=== PATIENT | female | born 1960 | race Caucasian/White ===

== ENCOUNTER 2016-12-14 18:15 | Emergency (ER) | payer OTHER ==
[~2016-12-14] VITALS: Wt 68.0 kg
[~2016-12-14 18:15] MED LIST: 'PARAFON FORTE500 M1 PO; ALBUTEROL0.09 MG/A2 IH; AMOXICILLIN500 MG PO; ANAPROX DS550 MG PO; ATIVAN1 MG PO; AUGMENTIN 875875 MG PO; CARAFATE1 G1 PO; CARE OT; CATAFLAM50 MG PO; CIPRO250 MG PO; CIPROFLOXACIN500 MG PO; CLARITIN10 MG PO; COLACE100 MG PO; DELTASONE10 MG PO; DIOVAN80 M1 PO; FLEXERIL10 MG PO; FLEXERIL5 MG PO; GABAPENTIN100 M2 PO; HCTZ/TRIAMTEREN1 TA3 PO; HYDROCODONE BIT1 T11 PO; IBU-8800 MG PO; MACROBID100 M1 PO; MELOXICAM15 MG PO; MELOXICAM7.5 MG PO; MOTRIN800 MG PO; NAPROSYN500 MG PO; NKHM; Nystatin Cream15 GM T; OYSTER CALCIUM1 TA2 PO; OYSTER SHELL 51 EACH PO; PREDNICOT20 MG PO; PREDNISONE20 MG PO; PROTONIX20 MG PO; PROTONIX40 MG PO; PROVENTIL0.09 MG/AC IH; ROBAXIN-750750 MG PO; ROBAXIN500 MG PO; ROBAXIN750 MG PO; ROBITUSSIN DM 105 ML PO; TESSALON PERLE200 MG PO; TORADOL10 MG PO; TRAMADOL HCL50 MG PO; TRIMOX500 MG PO; TYLENOL325 M1 PO; TYLENOL500 MG PO; ULTRAM50 MG PO; VALSARTAN-HCTZ1 EAC2 PO; VICODIN 5/500 505 MG PO; VICODIN 500 MG-1 TAB PO; VITAMIN D400 IU PO; Zofran4 MG PO; [UNRECOGNIZED DRUG - OTHER]
== END 2016-12-14 19:55 | disposition home or self-care (01) ==
LOC: ED 18:15
DX: S60.041A Contusion of right ring finger without damage to nail, initial encounter (principal); F41.9 Anxiety disorder, unspecified; Z88.1 Allergy status to other antibiotic agents; W23.0XXA Caught, crushed, jammed, or pinched between moving objects, initial encounter; Y93.89 Activity, other specified; Y92.9 Unspecified place or not applicable; Y99.9 Unspecified external cause status

== ENCOUNTER 2017-08-07 14:57 | Emergency (ER) | payer OTHER ==
[~2017-08-07] VITALS: Ht 147.3 cm; Wt 63.5 kg
[2017-08-07 15:51] LABS: BASO # 0.1 10*3/uL (0.0-0.1); BASO % 0.7 % (0.0-1.0); EOS # 0.4 10*3/uL (0.0-0.4); EOS % 3.7 % (1.0-4.0); HEMATOCRIT 41.2 % (37.0-47.0); HEMOGLOBIN 13.5 g/dl (12.0-16.0); LYMPH # 2.7 10*3/uL (1.3-4.4); LYMPH % 29.3 % (27.0-41.0); MEAN CELL VOLUME 83.7 fl (81.0-99.0); MEAN CORPUSCULAR HGB 27.4 pg (27.0-31.0); MEAN CORPUSCULAR HGB CONC 32.8 g/dl (33.0-37.0); MONO # 0.7 10*3/uL (0.1-1.0); MONO % 7.9 % (3.0-9.0); NEUT # 5.4 10*3/uL (2.3-7.9); NEUT % 57.8 % (47.0-73.0); PLATELET COUNT AUTOMATED 408 10*3/uL (130-400); RED BLOOD COUNT 4.92 10*6/uL (4.10-5.10); RED CELL DISTRI WIDTH 13.7 % (0-14.5); WHITE BLOOD COUNT 9.4 10*3/uL (4.8-10.8)
[2017-08-07 16:05] LABS: ALBUMIN 3.5 gm/dl (3.1-4.5); ALKALINE PHOSPHATASE 122 U/L (45-117); BUN 20 mg/dl (7-24); CHLORIDE 105 mmol/L (98-107); CREATININE 1.09 mg/dL (0.55-1.02); LIPASE 148 U/L (73-393); POTASSIUM 4.2 mmol/L (3.5-5.1); SGOT/AST 19 IU/L (3-35); SGPT/ALT 29 U/L (12-78); SODIUM 142 mmol/L (136-145); TOTAL PROTEIN 7.8 gm/dL (6.4-8.2)
[2017-08-07] MEDS ORDERED: ZOFRAN ODT4 MG SL (18:50)
[2017-08-07] MEDS ORDERED: NORCO 10-325 T1 EACH PO (18:50)
== END 2017-08-07 19:04 | disposition home or self-care (01) ==
LOC: ED 14:57
PROVIDERS: Emergency Medicine
DX: K80.20 Calculus of gallbladder without cholecystitis without obstruction (principal); Z79.899 Other long term (current) drug therapy; Z88.8 Allergy status to other drugs, medicaments and biological substances

== ENCOUNTER → 2017-08-16 | Day surgery (SDC) | payer OTHER ==
[~2017-08-16] VITALS: Ht 147.3 cm; Wt 45.4 kg
[2017-08-16] VITALS (18 sets, daily range): BP systolic 112–168; BP diastolic 46–81
[~2017-08-16] MED LIST changes: +NORCO 10-325 T1 EACH PO; +NORCO 5-325 TA1 EACH PO; +ZOFRAN ODT4 MG SL
--- NOTE | ~2017-08-16 | O ---
[place], [place] OPERATIVE NOTE NAME: SHO LABOY [facility] #: [id number] UNIT #: [id number] ROOM: DOCTOR: JUANCARLOS KELLER MD BIRTHDATE: [birth year] DOS: 08/16/2017 PREOPERATIVE DIAGNOSIS: Symptomatic gallstones. POSTOPERATIVE DIAGNOSIS: Symptomatic gallstones. PROCEDURE: Laparoscopic cholecystectomy. SURGEON: Juancarlos Keller MD DINNER COOK: NAYELY. ANESTHESIA: General with endotracheal intubation. INDICATIONS: This is a 57-year-old lady who has a history of symptomatic gallstones, who is here for the above-mentioned procedure. The procedure and its complications were explained to the patient in detail preoperatively. Complications that were discussed included but were not limited to bleeding, infection, hematoma/seroma/abscess formation, biloma formation, inadvertent injury to common bile duct, damage to underlying vital structures and incisional hernia formation. She agreed to proceed. DESCRIPTION OF PROCEDURE: After identifying the patient, the patient was brought to the operating suite and laid in the supine position. After induction of general anesthesia, the parts were then painted and draped in the usual sterile fashion. A time-out procedure was called. An incision was made in a transverse fashion below the umbilicus. The skin and the subcutaneous tissue were incised in the line of the incision. The fascia was incised vertically and 2 stay sutures were taken with the help of 0 Vicryl. The peritoneum was opened and a 12 mm Thien port was introduced into the peritoneal cavity. A pneumoperitoneum was created. Under direct vision, an epigastric incision of 10 mm and two 5 mm incisions were made in the right upper quadrant and appropriate size ports were introduced. The gallbladder was retracted superiorly and laterally. The cystic duct and the cystic artery were meticulously dissected until the critical view of safety was obtained and the triangle of Calot was identified. Thereafter, each of these structures were clipped 3 times and cut between the first and the second clip. The gallbladder was then removed from the bed of the gallbladder and placed in an EndoCatch bag. It was sent for histopathological diagnosis after it was removed. Thereafter, hemostasis was achieved in the liver bed and the ports were then removed and the fascial defect was approximated with the help of 0 Vicryl in interrupted fashion. The skin edges were approximated with 4-0 Vicryl after local anesthesia was infiltrated. The patient tolerated the procedure well. She was extubated uneventfully and brought back to the recovery room in stable fashion. There were no complications. Dr. Juancarlos Keller, the attending surgeon, was present throughout the operating case. [place], [place] OPERATIVE NOTE NAME: SHO LABOY UNIT #: [id number] ROOM: DOCTOR: JUANCARLOS KELLER MD BIRTHDATE: [birth year] Juancarlos Keller MD CM:OPRECORD:OPERATIVE NOTE [id number] JUANCARLOS KELLER MD 08/16/17 1043 interface
== END | disposition home or self-care (01) ==
LOC: SDC 08-15 10:15
DX: K81.1 Chronic cholecystitis (principal); Z88.8 Allergy status to other drugs, medicaments and biological substances; I10 Essential (primary) hypertension; Z98.51 Tubal ligation status; Z90.710 Acquired absence of both cervix and uterus; Z98.890 Other specified postprocedural states; Z79.899 Other long term (current) drug therapy; E66.01 Morbid (severe) obesity due to excess calories

== ENCOUNTER 2018-01-01 15:08 | Emergency (ER) | payer OTHER ==
[~2018-01-01] VITALS: Ht 147.3 cm; Wt 65.8 kg
[2018-01-01] MEDS ORDERED: ZOCOR5 MG PO (15:13)
[2018-01-01] MEDS ORDERED: ANAPROX DS550 MG PO (16:52)
== END 2018-01-01 16:50 | disposition home or self-care (01) ==
LOC: ED 15:08
DX: M17.12 Unilateral primary osteoarthritis, left knee (principal); Z88.1 Allergy status to other antibiotic agents; Z79.899 Other long term (current) drug therapy

== ENCOUNTER 2018-01-21 11:18 | Emergency (ER) | payer OTHER ==
[~2018-01-21] VITALS: Ht 147.3 cm; Wt 68.0 kg
[~2018-01-21 11:18] MED LIST changes: +ZOCOR5 MG PO
[2018-01-21] MEDS ORDERED: NAPROSYN500 MG PO (12:15)
[2018-01-21] MEDS ORDERED: AMOXICILLIN500 M2 PO (12:15)
[2018-01-21] MEDS ORDERED: FLONASE ALLERG9.9 ML NAS (12:15)
== END 2018-01-21 12:20 | disposition home or self-care (01) ==
LOC: ED 11:18
DX: S86.911A Strain of unspecified muscle(s) and tendon(s) at lower leg level, right leg, initial encounter (principal); J01.10 Acute frontal sinusitis, unspecified; H92.03 Otalgia, bilateral; J02.9 Acute pharyngitis, unspecified; Z88.1 Allergy status to other antibiotic agents; Z79.899 Other long term (current) drug therapy; X58.XXXA Exposure to other specified factors, initial encounter; Y93.89 Activity, other specified; Y92.89 Other specified places as the place of occurrence of the external cause; Y99.8 Other external cause status

== ENCOUNTER → 2018-03-12 | Outpatient (CLI) | payer OTHER ==
[~2018-03-12] MED LIST changes: +AMOXICILLIN500 M2 PO; +FLONASE ALLERG9.9 ML NAS
== END ==
LOC: ORTHO 03:32
DX: M76.892 Other specified enthesopathies of left lower limb, excluding foot (principal); M79.89 Other specified soft tissue disorders

== ENCOUNTER → 2018-03-21 | Outpatient (CLI) | payer MEDICARE, MEDICAID | END | disposition home or self-care (01) | LOC: MRI 10:31 | DX: M17.12 Unilateral primary osteoarthritis, left knee (principal) ==

== ENCOUNTER → 2018-05-15 | Day surgery (SDC) | payer MEDICARE, MEDICAID ==
[~2018-05-15] MED LIST changes: +CORTISPORIN SUS10 ML OT; +IBUPROFEN600 MG PO; +LOSARTAN-HCTZ1 EAC2 PO; +ROBAXIN500 M1 PO
--- NOTE | ~2018-05-15 | O ---
[place], [place] OPERATIVE NOTE NAME: SHO LABOY UNIT #: [id number] ROOM: DOCTOR: LENI RIVERACHERELLE BIRTHDATE: [birth year] DOS: 05/15/2018 GASTROENDOSCOPIC REPORT HISTORY OF PRESENT ILLNESS: This is a 58-year-old patient who presented with chief complaint of dysphagia to solid food and difficulty swallowing her pills. On Protonix and Carafate, which is helping. However, she is still complaining of abdominal pain, sonographic study has been ordered. PAST MEDICAL HISTORY: Associated with hypertension, hyperlipidemia, degenerative joint disease, and gastritis. PAST SURGICAL HISTORY: Cholecystectomy, hysterectomy, podiatric surgery, and . FAMILY HISTORY: Noncontributory. PROCEDURE: Today's procedure part of investigation is panendoscopy plus balloon dilation of esophagus plus biopsy. PREMEDICATION: Propofol. SCOPE: Olympus forward-viewing gastroscope Q10 video. REPORT: After putting the patient in left lateral position and application of lubricant to the scope, the scope was introduced. Thereafter, under direct visualization, advanced through the length of esophagus without difficulty. Hiatal hernia about a 2 cm was noticed. Gastric pouch was entered. Gastritis seen. Duodenal bulb, second and third part within normal limits. Scope was gradually withdrawn along the lesser curvature. Air was suctioned out. Antral biopsy obtained. The patient extubated to the proximal stomach. At this stage, a balloon size 20 was introduced into the gastric pouch, inflated and swept along the length of the esophagus. Highest resistance at the upper esophagus was noticed to a point where we had to reduce the pressure to size 19. Then, only the balloon was retrievable. The patient tolerated the procedure well. IMPRESSION: Upper esophageal stricture, status post balloon dilation to size 19, small hiatal hernia, and gastritis. PLAN AND DISCUSSION: Continuation with the same therapy with Protonix and Carafate. Elevation of the head of the bed 6 inch all time, Gaviscon as antacid of choice, abstaining from solid food ingestion 5 hours prior to retiring. Followup routinely with you in office, p.r.n. visit with us in GI Clinic. I thank you very much indeed for your kind referral. [place], [place] OPERATIVE NOTE NAME: SOH LABOY UNIT #: [id number] ROOM: DOCTOR: LENI RIVERA,CHERELLE BIRTHDATE: [birth year] CHERELLE FARRAR MD CM:OPRECORD:OPERATIVE NOTE [id number] CHERELLE FARRAR MD 05/15/18 1307 interface
[2018-05-15 10:52] VITALS: BP 131/63
[2018-05-15 12:14] VITALS: BP 97/49
[2018-05-15 12:29] VITALS: BP 119/73
[2018-05-15 12:44] VITALS: BP 124/54
== END | disposition home or self-care (01) ==
LOC: SDC 05-13 12:30
DX: K22.2 Esophageal obstruction (principal); K29.50 Unspecified chronic gastritis without bleeding; K44.9 Diaphragmatic hernia without obstruction or gangrene; I10 Essential (primary) hypertension; K21.9 Gastro-esophageal reflux disease without esophagitis; E78.5 Hyperlipidemia, unspecified; M19.90 Unspecified osteoarthritis, unspecified site; G89.29 Other chronic pain; Z90.49 Acquired absence of other specified parts of digestive tract; Z90.710 Acquired absence of both cervix and uterus; Z98.890 Other specified postprocedural states; Z98.891 History of uterine scar from previous surgery; Z88.1 Allergy status to other antibiotic agents; Z79.899 Other long term (current) drug therapy; Z98.51 Tubal ligation status

== ENCOUNTER → 2018-06-04 | Outpatient (CLI) | payer OTHER ==
[2018-06-04 09:00] LABS: HEMATOCRIT 41.3 % (37.0-47.0); HEMOGLOBIN 13.4 g/dl (12.0-16.0); MEAN CELL VOLUME 84.5 fl (81.0-99.0); MEAN CORPUSCULAR HGB 27.4 pg (27.0-31.0); MEAN CORPUSCULAR HGB CONC 32.4 g/dl (33.0-37.0); RED BLOOD COUNT 4.89 10*6/uL (4.10-5.10); WHITE BLOOD COUNT 8.3 10*3/uL (4.8-10.8)
[2018-06-04 09:22] LABS: ALBUMIN 3.4 gm/dl (3.1-4.5); ALKALINE PHOSPHATASE 121 U/L (45-117); BUN 14 mg/dl (7-24); CHLORIDE 104 mmol/L (98-107); CHOLESTEROL 179 mg/dL (<200); CPK 92 U/L (26-192); CREATININE 1.07 mg/dL (0.55-1.02); HDL CHOLESTEROL 43 mg/dl (40-60); LDL CHOLESTEROL 105 mg/dL (9-159); POTASSIUM 3.7 mmol/L (3.5-5.1); SGOT/AST 21 IU/L (3-35); SGPT/ALT 26 U/L (12-78); SODIUM 141 mmol/L (136-145); TOTAL PROTEIN 7.7 gm/dL (6.4-8.2); TRIGLYCERIDES 157 mg/dl (<150); VLDL CHOLESTEROL 31 mg/dL (6-40)
== END | disposition home or self-care (01) ==
LOC: LAB 08:00
PROVIDERS: Family Medicine
DX: E78.00 Pure hypercholesterolemia, unspecified (principal); E74.9 Disorder of carbohydrate metabolism, unspecified; K21.9 Gastro-esophageal reflux disease without esophagitis; R05 Cough; E55.9 Vitamin D deficiency, unspecified

== ENCOUNTER → 2018-09-04 | Day surgery (SDC) | payer OTHER ==
[~2018-09-04] VITALS: Ht 147.3 cm; Wt 68.0 kg
[~2018-09-04] MED LIST changes: +ZITHROMAX250 MG PO
--- NOTE | ~2018-09-04 | O ---
[place], [place] OPERATIVE NOTE [id number] #: [id number] ROOM: [facility] B[facility] [birth year] DOS: 09/04/2018 HISTORY OF PRESENT ILLNESS: A 58-year-old patient who presented with chief complaint of dysphagia, undergoing investigation. ALLERGIES: ERYTHROMYCIN, QUESTIONABLY. FAMILY HISTORY: Noncontributory. PAST SURGICAL HISTORY: , hysterectomy, and cholecystectomy. PAST MEDICAL HISTORY: Obesity, hypertension, gastritis, and sciatica. SOCIAL HISTORY: Nonsmoker, nonalcohol consumer. PROCEDURE: Today's procedure part of investigation is panendoscopy and colonoscopy. PREMEDICATION: Propofol. SCOPE: Olympus forward-viewing gastroscope Q10 video. REPORT: After putting the patient in left lateral position and application of lubricant to the scope, the scope was introduced. Thereafter, under direct visualization, advanced through the length of esophagus without difficulty. Esophagus, cervix, thoracic are all within normal limits. Small hiatal hernia was noticed approximately 2.5 cm. Gastric pouch was entered. Mild gastritis seen. Duodenal bulb, second and third part within normal limits. Antral biopsy obtained. The patient's GI reflexion of the scope reveals cardia within normal limit. The air was suctioned. At this stage, a balloon size 15-18 was introduced in mid gastric pouch inflated to size 18 ____ along the distal esophagus to cervical esophagus. Highest resistance is in cervical esophagus and we had to compromise to size 17 and upper esophagus dilated. Air was suctioned out. The patient was extubated, tolerated the procedure well. IMPRESSION: Benign upper esophageal stricture, status post balloon dilation to size 17, hiatal hernia, small gastritis, mild. PLAN AND DISCUSSION: The patient is on ibuprofen 600 mg 3 times a day; that is the culprit for dyspepsia and on the other hand, she has been on pantoprazole 40 mg 1 every day. She is on meloxicam 7.5 mg another culprit in her dyspepsia and gastritis. Antireflux measures with elevation of the head of bed at 10 inches all time, avoiding late solid food. Gaviscon antacid of choice for breakthrough dyspepsia and we will clinically reassess in the office to see if the dilation has helped her or otherwise. I thank you very much indeed for your kind referral. [place], [place] OPERATIVE NOTE NAME: SHO LABOY UNIT #: [id number] ROOM: DOCTOR: LENI RIVERA,CHERELLE BIRTHDATE: [birth year] CHERELLE FARRAR MD CM:OPRECORD:OPERATIVE NOTE [id number] CHERELLE FARRAR MD 09/04/18 1058 interface
[2018-09-04 08:50] VITALS: BP 119/62
[2018-09-04 09:39] VITALS: BP 103/47
[2018-09-04 09:54] VITALS: BP 110/56
[2018-09-04 10:09] VITALS: BP 116/56
== END | disposition home or self-care (01) ==
LOC: SDC 08-30 12:30
DX: K22.2 Esophageal obstruction (principal); K29.50 Unspecified chronic gastritis without bleeding; K21.9 Gastro-esophageal reflux disease without esophagitis; I10 Essential (primary) hypertension; K44.9 Diaphragmatic hernia without obstruction or gangrene; E66.01 Morbid (severe) obesity due to excess calories; Z68.31 Body mass index [BMI] 31.0-31.9, adult; Z90.49 Acquired absence of other specified parts of digestive tract; Z90.710 Acquired absence of both cervix and uterus; Z98.890 Other specified postprocedural states; Z88.1 Allergy status to other antibiotic agents; Z87.442 Personal history of urinary calculi

== ENCOUNTER → 2018-12-03 | Outpatient (CLI) | payer OTHER ==
[~2018-12-03] MED LIST changes: +OMEPRAZOLE40 MG PO; +PERCOCET 5-3251 EACH PO; +ZOCOR10 MG PO; -ZOCOR5 MG PO
[2018-12-03 11:35] LABS: HEMATOCRIT 40.8 % (37.0-47.0); HEMOGLOBIN 13.3 g/dl (12.0-16.0); MEAN CELL VOLUME 85.2 fl (81.0-99.0); MEAN CORPUSCULAR HGB 27.8 pg (27.0-31.0); MEAN CORPUSCULAR HGB CONC 32.6 g/dl (33.0-37.0); MEAN PLATELET VOLUME 10.1 fl (9.6-12.3); RED BLOOD COUNT 4.79 10*6/uL (4.10-5.10); RED CELL DISTRI WIDTH 13.7 % (0-14.5); WHITE BLOOD COUNT 7.7 10*3/uL (4.8-10.8)
[2018-12-03 11:59] LABS: ALBUMIN 3.4 gm/dl (3.1-4.5); CREATININE 1.26 mg/dL (0.55-1.02); POTASSIUM 3.9 mmol/L (3.5-5.1); TOTAL PROTEIN 8.1 gm/dL (6.4-8.2)
== END | disposition home or self-care (01) ==
LOC: LAB 11:00
PROVIDERS: Family Medicine
DX: E78.00 Pure hypercholesterolemia, unspecified (principal); R05 Cough; Z79.899 Other long term (current) drug therapy

== ENCOUNTER → 2019-01-01 | Outpatient (CLI) | payer OTHER | END | disposition home or self-care (01) | LOC: MRI 09:32 | DX: M48.061 Spinal stenosis, lumbar region without neurogenic claudication (principal) ==

== ENCOUNTER 2019-01-28 08:29 | Inpatient (IN) | payer OTHER ==
[2019-01-28] VITALS (8 sets, daily range): BP systolic 124–149; BP diastolic 57–81
[~2019-01-28] VITALS: Ht 149.9 cm; Wt 90.4 kg
--- NOTE | ~2019-01-28 | EKG ---
[place], [place] ELECTROCARDIOGRAM REPORT NAME: SHO LABOY UNIT #: [id number] ROOM: 406 DOCTOR: REBEKAH DRAFT REPORT BIRTHDATE: [birth year] [facility] Test Date: 2019-01-28 Test Time: 14:40:14 Pat Name: SHO LABOY Department: Room: [facility] Gender: F Load Checker: EKG.[place] : 1960 Requested By: YANELI CAO Order Number: [id number] Reading MD: Melly Davison MD Measurements Intervals [place] Rate: 55 P: 25 [place]: 156 QRS: 21 QRSD: 68 T: 38 QT: 404 QTc: 387 Interpretive Statements Sinus rhythm Electronically Signed On 01-31-2019 9:06:44 PDT by Melly Davison MD CM:EKGRPT:ELECTROCARDIOGRAM REPORT [phone] YANELI BIRCH DRAFT REPORT YANELI CAO DO
--- NOTE | ~2019-01-28 | EKG ---
[place], [place] ELECTROCARDIOGRAM REPORT NAME: SHO LABOY UNIT #: [id number] ROOM: 406 DOCTOR: REBEKAH DRAFT REPORT BIRTHDATE: [birth year] [facility] Test Date: 2019-01-28 Test Time: 08:31:06 Pat Name: SHO LABOY Department: Room: 406 Gender: F Consulting Technical Director: : 1960 Requested By: YANELI CAO Order Number: [id number] Reading MD: Melly Davison MD Measurements Intervals [place] Rate: 64 P: 27 NE: 139 QRS: 21 QRSD: 75 T: 35 QT: 406 QTc: 419 Interpretive Statements Sinus rhythm Low voltage, precordial leads Baseline wander in lead(s) II,aVF Electronically Signed On 01-31-2019 9:06:03 PDT by Melly Davison MD CM:EKGRPT:ELECTROCARDIOGRAM REPORT [id number] YANELI BIRCH DRAFT REPORT YANELI CAO DO
--- NOTE | ~2019-01-28 | EKG ---
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
[~2019-01-28 08:29] MED LIST changes: -OMEPRAZOLE40 MG PO; -PERCOCET 5-3251 EACH PO
[2019-01-28 08:57] LABS: BASO # 0.1 10*3/uL (0.0-0.1); BASO % 0.5 % (0.0-1.0); EOS # 0.1 10*3/uL (0.0-0.4); EOS % 0.5 % (1.0-4.0); HEMATOCRIT 39.8 % (37.0-47.0); HEMOGLOBIN 13.1 g/dl (12.0-16.0); LYMPH # 2.5 10*3/uL (1.3-4.4); MEAN CELL VOLUME 85.4 fl (81.0-99.0); MEAN CORPUSCULAR HGB 28.1 pg (27.0-31.0); MEAN CORPUSCULAR HGB CONC 32.9 g/dl (33.0-37.0); MEAN PLATELET VOLUME 10.2 fl (9.6-12.3); MONO # 0.6 10*3/uL (0.1-1.0); MONO % 5.7 % (3.0-9.0); NEUT # 7.6 10*3/uL (2.3-7.9); NEUT % 69.2 % (47.0-73.0); PLATELET COUNT AUTOMATED 392 10*3/uL (130-400); RED BLOOD COUNT 4.66 10*6/uL (4.10-5.10); RED CELL DISTRI WIDTH 13.8 % (0-14.5)
[2019-01-28 09:14] LABS: ALBUMIN 3.2 gm/dl (3.1-4.5); ALKALINE PHOSPHATASE 117 U/L (45-117); BUN 18 mg/dl (7-24); CHLORIDE 108 mmol/L (98-107); CREATININE 0.89 mg/dL (0.55-1.02); POTASSIUM 3.7 mmol/L (3.5-5.1); SGOT/AST 14 IU/L (3-35); SGPT/ALT 18 U/L (12-78); SODIUM 140 mmol/L (136-145); TOTAL PROTEIN 7.4 gm/dL (6.4-8.2)
[2019-01-28 09:18] LABS: TROPONIN I < 0.015 ng/ml (<0.045)
[2019-01-28 09:19] LABS: ACT PARTIAL THROMBO TIME 28.2 SECONDS (20.0-32.1)
--- NOTE | 2019-01-28 11:59 | NUR ---
Called patients home pharmacy to fax updated med list.
--- NOTE | 2019-01-28 12:16 | NUR ---
A 59, admitted to , under the services of LILIYA Gonzalez MD with a diagnosis of Chest pain . Chief complaint is chest pain. Patient arrived via wheel chair from ER. Monitor applied. Initial assessment completed. Vital signs taken and recorded. LILIYA GONZALEZ MD notified of admission to the unit. Orders received. See assessment for past medical history, medications and allergies. Patient and/or family oriented to unit. [address] visitation policy reviewed. Clothing/patient valuable form completed. ASHLEY BYRD
[2019-01-28] MEDS ORDERED: OMEPRAZOLE40 MG PO (13:08)
--- NOTE | 2019-01-28 13:50 | NUR ---
Left a message with Sharmila at [facility] regarding consult for epigastric chest pain. Physician to follow up at patients bedside.
--- NOTE | 2019-01-28 19:30 | NUR ---
ASSUMED CARE OF PT AT THIS TIME. PT AWAKE IN BED TALKING ON PHONE. DENIES ANY CHEST PAIN/PRESSURE/NUMBNESS. NO OTHER COMPLAINTS VOICED. WILL MONITOR. CALL LIGHT IN REACH.
[2019-01-29] VITALS: BP 142/65
--- NOTE | 2019-01-29 00:58 | NUR ---
PATIENT REQUESTING TO LEAVE AMA. STATES SHE IS NOT ABLE TO GET ANY REST. RN OFFERED PILLOWS, BLANKETS, EAR PLUGS, ETC. PATIENT STATES SHE HAS IT IN HER MIND THAT SHE WILL NOT BE ABLE TO SLEEP, SO SHE IS SIGNING OUT. NOTIFIED OF SITUATION. CANNOT RELEASE PT UNTIL AFTER STRESS TEST. AWARE THAT PT IS LEAVING AMA. WINDING INSPECTOR AND TESTER COLLECTED AND PLACED IN YELLOW BIN. IV SITE TO LAC REMOVED PER POLICY. DSD APPLIED. PT IS ALERT & ORIENTED X3 AND IN STABLE CONDITION AT THIS TIME. PT CURRENTLY IN ROOM GATHERING BELONGINS AND CALLING HER FOR A RIDE. SHIFT DIRECTOR NOTIFIED.
--- NOTE | 2019-01-29 01:24 | NUR ---
PT AMBULATED OFF FLOOR IN CARE OF . ALL BELONGINGS TAKEN WITH PT AT THIS TIME. PT ENCOURAGED TO FOLLOW UP WITH PCP IN 1 WEEK.
== END 2019-01-29 01:39 | disposition left against medical advice (07) | DRG 313 ==
LOC: ED 08:29 → EDHOLD 10:54 → 4E 10:58
PROVIDERS: Emergency Medicine; ADMIT Internal Medicine
DX: R07.9 Chest pain, unspecified (principal); Z68.41 Body mass index [BMI] 40.0-44.9, adult; F41.9 Anxiety disorder, unspecified; E66.01 Morbid (severe) obesity due to excess calories; M17.12 Unilateral primary osteoarthritis, left knee; E78.5 Hyperlipidemia, unspecified; I10 Essential (primary) hypertension; Z88.8 Allergy status to other drugs, medicaments and biological substances; Z88.1 Allergy status to other antibiotic agents; Z90.49 Acquired absence of other specified parts of digestive tract; Z90.710 Acquired absence of both cervix and uterus; Z98.891 History of uterine scar from previous surgery; Z98.51 Tubal ligation status; Z82.5 Family history of asthma and other chronic lower respiratory diseases; Z82.49 Family history of ischemic heart disease and other diseases of the circulatory system; Z81.2 Family history of tobacco abuse and dependence; Z79.899 Other long term (current) drug therapy

== ENCOUNTER 2019-03-23 09:55 | Emergency (ER) | payer OTHER ==
[~2019-03-23] VITALS: Ht 149.8 cm; Wt 65.8 kg
[~2019-03-23 09:55] MED LIST changes: +OMEPRAZOLE40 MG PO
[2019-03-23] MEDS ORDERED: PERCOCET 5-3251 EACH PO (11:29)
== END 2019-03-23 11:30 | disposition home or self-care (01) ==
LOC: ED 09:55
DX: G89.29 Other chronic pain (principal); M54.5 Low back pain; M79.669 Pain in unspecified lower leg; R20.0 Anesthesia of skin; R20.2 Paresthesia of skin; I10 Essential (primary) hypertension; K21.9 Gastro-esophageal reflux disease without esophagitis; Z88.1 Allergy status to other antibiotic agents; Z88.8 Allergy status to other drugs, medicaments and biological substances; Z90.710 Acquired absence of both cervix and uterus

== ENCOUNTER → 2019-03-29 | Outpatient (CLI) | payer OTHER ==
[~2019-03-29] MED LIST changes: +PERCOCET 5-3251 EACH PO
== END | disposition home or self-care (01) ==
LOC: RAD 11:48
DX: M79.671 Pain in right foot (principal)

== ENCOUNTER → 2020-03-11 | Outpatient (CLI) | payer MEDICARE | END | disposition home or self-care (01) | LOC: RAD 15:50 | DX: M25.562 Pain in left knee (principal) ==

== ENCOUNTER → 2021-03-31 | Outpatient (CLI) | payer MEDICARE | END | disposition home or self-care (01) | LOC: RAD 11:21 | PROVIDERS: ATTEND Nurse Practitioner Family | DX: M79.662 Pain in left lower leg (principal) ==

== ENCOUNTER 2023-01-02 12:28 | Emergency (ER) | payer MEDICARE ==
[~2023-01-02] VITALS: Ht 147.3 cm; Wt 63.5 kg
[2023-01-02] MEDS ORDERED: TRAMADOL HCL50 MG PO (13:46)
== END 2023-01-02 13:59 | disposition home or self-care (01) ==
LOC: ED 12:28
DX: M25.512 Pain in left shoulder (principal); I10 Essential (primary) hypertension; K21.9 Gastro-esophageal reflux disease without esophagitis; Z88.1 Allergy status to other antibiotic agents; Z88.8 Allergy status to other drugs, medicaments and biological substances; Z90.49 Acquired absence of other specified parts of digestive tract; Z90.710 Acquired absence of both cervix and uterus; Z98.890 Other specified postprocedural states; Z98.51 Tubal ligation status

== ENCOUNTER → 2023-07-30 | Outpatient (CLI) | payer MEDICARE | END | disposition home or self-care (01) | LOC: RAD 12:13 | PROVIDERS: ATTEND Physician Assistant | DX: S89.91XA Unspecified injury of right lower leg, initial encounter (principal); M17.11 Unilateral primary osteoarthritis, right knee; X58.XXXA Exposure to other specified factors, initial encounter; Y93.89 Activity, other specified; Y92.89 Other specified places as the place of occurrence of the external cause; Y99.8 Other external cause status ==

== ENCOUNTER → 2024-01-03 | Outpatient (CLI) | payer MEDICARE | END | disposition home or self-care (01) | LOC: RAD 11:55 | PROVIDERS: ATTEND Physician Assistant | DX: M17.11 Unilateral primary osteoarthritis, right knee (principal); R60.0 Localized edema ==